=== PATIENT | female | born 1990 ===

== ENCOUNTER 2017-01-16 18:32 | Emergency (ER) | payer OTHER ==
[2017-01-16 18:59] VITALS: BP 114/80; PULSE 76; RESP 18; TEMP 98; BMI 31.6
[2017-01-16] MEDS ORDERED: Sodium Chloride 0.9% 1,000 ML IV STA (19:12)
[2017-01-16 20:08] LABS: ADD MANUAL DIFF? NO
[2017-01-16 20:19] LABS: PH,URINE 6.5 (4.7-8.0); URINE BILIRUBIN NEGATIVE (NEGATIVE); URINE BLOOD NEGATIVE (NEGATIVE); URINE GLUCOSE (UA) NEGATIVE (NEGATIVE); URINE KETONE NEGATIVE (NEGATIVE); URINE LEUKOCYTE ESTERASE NEGATIVE Leu/uL (NEGATIVE); URINE PROTEIN NEGATIVE mg/dL (<30 mg/dL); URINE UROBILINOGEN 0.2 E.U./dL (<1 E.U./dL)
[2017-01-16 20:22] LABS: INR 0.91 (0.93-1.08)
[2017-01-16 20:24] LABS: URINE APPEARANCE CLEAR (CLEAR); URINE COLOR YELLOW (YELLOW)
[2017-01-16 20:26] LABS: ALB/GLOB RATIO 1.2 (1.1-1.8); ALKALINE PHOSPHATASE 59 U/L (38-133); ALT/SGPT 41 U/L (7-56); AST/SGOT 23 U/L (15-39); BILIRUBIN,TOTAL 0.4 mg/dL (0.2-1.3); BLOOD UREA NITROGEN 12 mg/dL (7-21); CARBON DIOXIDE 22 mmol/L (21-33); CHLORIDE 101 mmol/L (98-107); GFR AFRICAN-AMERICAN > 60; GLUCOSE,RANDOM 86 mg/dL (70-110); POTASSIUM 3.9 mmol/L (3.6-5.0); SODIUM 132 mmol/L (132-148); TOTAL PROTEIN 7.3 g/dL (5.8-8.3)
[2017-01-16 20:29] LABS: BASO # 0.05 K/mm3 (0.0-2.0); BASO % 0.5 % (0.0-3.0); EOS # 0.2 (0.0-0.7); EOS % 2.5 % (1.5-5.0); GRAN # 6.12 (1.4-6.5); GRAN % 62.5 % (50.0-68.0); HEMATOCRIT 36.1 % (36.0-48.0); LYMPH # 2.6 (1.2-3.4); MEAN CELL VOLUME 87.4 fL (80.0-105.0); MEAN CORPUSCULAR HEMOGLOBIN 30.5 pg (25.0-35.0); MEAN CORPUSCULAR HGB CONC 34.9 g/dl (31.0-37.0); MEAN PLATELET VOLUME 9.2 fl (7.0-11.0); MONO # 0.8 (0.1-0.6); MONO % 8.5 % (1.0-6.0); PLATELET COUNT 299 10^3/uL (120.0-450.0); RED CELL DISTRIBUTION WIDTH 13.5 % (11.5-14.5); WHITE BLOOD COUNT 9.8 10^3/ul (4.5-11.0)
--- NOTE | 2017-01-16 20:50 | ED PDOC ---
Arrival/HPI - General Chief Complaint: Abdominal Pain Time Seen by Provider: 01/16/17 19:00 Historian: Patient - History of Present Illness Narrative History of Present Illness (Text): 01/16/17 20:42 26yo female present with complaint crampy subprapubic abdominal pain. States pain started after she ran about half a mile this morning to catch a train. Notes that she is currently 10weeks . Also reports mild thick vaginal discharge. States the discharge started weeks ago, but became worse today. She have OB. she denies nausea, vomiting, diarrhea, vaginal bleeding, fever, chills, any other complaint. Past Medical History - Provider Review Nursing Documentation Reviewed: Yes - Infectious Disease Hx of Infectious Diseases: None - Cardiac Hx Cardiac Disorders: No - Pulmonary Hx Respiratory Disorders: No - Neurological Hx Neurological Disorder: No - Renal Hx Renal Disorder: No - Endocrine/Metabolic Hx Endocrine Disorders: No - Hematological/Oncological Hx Blood Disorders: No - Integumentary Hx Dermatological Disorder: No - Musculoskeletal/Rheumatological Hx Musculoskeletal Disorders: No - Gastrointestinal Hx Gastrointestinal Disorders: No - Genitourinary/Gynecological Hx Genitourinary Disorders: Yes Other/Comment: endometriosis - Psychiatric Hx Psychophysiologic Disorder: No Hx Substance Use: No - Surgical History Other/Comment: vaginal biopsy - Anesthesia Hx Anesthesia: No Family/Social History - Physician Review Nursing Documentation Reviewed: Yes Family/Social History: Unknown Family HX Smoking Status: Never Smoked Hx Alcohol Use: Yes Hx Substance Use: No Allergies/Home Meds Allergies/Adverse Reactions: Allergies No Known Allergies Allergy (Verified 01/16/17 18:59) Home Medications: Home Meds Medication Instructions Recorded Confirmed Multivit/Folic Acid/I 1 tab PO DAILY 01/16/17 01/16/17 [ Plus] Review of Systems - Physician Review All systems were reviewed & negative as marked: Yes - Review of Systems Constitutional: Normal Eyes: Normal ENT: Normal Respiratory: Normal Cardiovascular: Normal Gastrointestinal: Abdominal Pain. absent: Constipation, Diarrhea, Nausea, Vomiting, Hematochezia, Hematemesis Genitourinary Female: Vaginal Discharge. absent: Vaginal Bleeding Musculoskeletal: Normal Skin: Normal Neurological: Normal Endocrine: Normal Hemo/Lymphatic: Normal Psychiatric: Normal Physical Exam Vital Signs Reviewed: Yes Vital Signs Temp Pulse Resp BP Pulse Ox 01/16/17 21:34 18 98 01/16/17 18:52 98 F 76 18 114/80 99 Temperature: Afebrile Blood Pressure: Normal Pulse: Regular Respiratory Rate: Normal Appearance: Positive for: Well-Appearing, Non-Toxic, Comfortable Pain Distress: None Mental Status: Positive for: Alert and Oriented X 3 - Systems Exam Head: Present: Atraumatic, Normocephalic Pupils: Present: PERRL Extroacular Muscles: Present: EOMI Conjunctiva: Present: Normal Mouth: Present: Moist Mucous Membranes Neck: Present: Normal Range of Motion Respiratory/Chest: Present: Clear to Auscultation, Good Air Exchange. No: Respiratory Distress, Accessory Muscle Use Cardiovascular: Present: Regular Rate and Rhythm, Normal S1, S2. No: Murmurs Abdomen: Present: Normal Bowel Sounds. No: Tenderness, Distention, Peritoneal Signs, Rebound, Guarding, McBurney's Point Tender, Rovsing's Sign Present Back: Present: Normal Inspection Upper Extremity: Present: Normal Inspection. No: Cyanosis, Edema Lower Extremity: Present: Normal Inspection. No: Edema Neurological: Present: GCS=15, CN II-XII Intact, Speech Normal Skin: Present: Warm, Dry, Normal Color. No: Rashes Psychiatric: Present: Alert, Oriented x 3, Normal Insight, Normal Concentration Medical Decision Making ED Course and Treatment: 01/17/17 01:14 Pt in ED for stated history. She denied vaginal bleeding in ED Beta quant [id number] She was hydrated in ED Transvaginal US FINDINGS: Gestation: Single live intrauterine gestation. heart rate of 155 beats per minute. [place]-rump length of 4.2 cm, correlating with gestational age of 11 weeks 1 day. Placenta/amniotic fluid: Questionable contraction vs slight prominence of placenta. Uterus/cervix: No subchorionic hemorrhage. No cervical dilatation or effacement. Ovaries: RIGHT ovary: Normal. LEFT ovary: Not visualized. No adnexal masses. Free fluid: No significant free fluid. IMPRESSION: 1. Single live intrauterine gestation. 2. Incidental/non-acute findings are described above. Result was DW the patient. She was advised to rest and keep herself well hydrated. she have OB and was strongly advised to f/u with her OB tomorrow . She notes that she will see her OB tomorrow. States she came to ED today because her OB was close. Advised TRT ED if her symptoms persists or worsens. 01/17/17 01:18 - Lab Interpretations Lab Results: 01/16/17 20:07 01/16/17 20:07 Lab Results 01/16/17 20:07: Beta HCG, Quant [id number] H 01/16/17 20:07: Sodium 132, Potassium 3.9, Chloride 101, Carbon Dioxide 22, Anion Gap 13, BUN 12, Creatinine 0.5, Est GFR ( Amer) > 60, Est GFR (Non- Af Amer) > 60, Random Glucose 86, Calcium 9.0, Total Bilirubin 0.4, AST 23, ALT 41, Alkaline Phosphatase 59, Total Protein 7.3, Albumin 4.0, Globulin 3.3, Albumin/Globulin Ratio 1.2 01/16/17 20:07: Urine Color Yellow, Urine Appearance Clear, Urine pH 6.5, Ur Specific [place] 1.020, Urine Protein Negative, Urine Glucose (UA) Negative, Urine Ketones Negative, Urine Blood Negative, Urine Nitrate Negative, Urine Bilirubin Negative, Urine Urobilinogen 0.2, Ur Leukocyte Esterase Negative, Urine HCG, Qual Positive 01/16/17 20:07: PT 9.8 L, INR 0.91 L, APTT 27.0 01/16/17 20:07: WBC 9.8 D, RBC 4.13, Hgb 12.6, Hct 36.1, MCV 87.4, MCH 30.5, MCHC 34.9, RDW 13.5, Plt Count 299, MPV 9.2, Gran % 62.5, Lymph % (Auto) 26.0, [place] % (Auto) 8.5 H, Eos % (Auto) 2.5, Baso % (Auto) 0.5, Gran # 6.12, Lymph # 2.6, [place] # 0.8 H, Eos # 0.2, Baso # 0.05 - RAD Interpretation Radiology Orders: 01/16/17 19:11 OB TRANSVAGINAL [US] Stat - Medication Orders Current Medication Orders: Discontinued Medications Sodium Chloride (Sodium Chloride 0.9%) 1,000 mls @ 999 mls/hr IV .Q1H1M STA Stop: 01/16/17 20:12 Last Admin: 01/16/17 20:30 Dose: 999 mls/hr Disposition/Present on Arrival - Present on Arrival Any Indicators Present on Arrival: No History of DVT/PE: No History of Uncontrolled Diabetes: No Urinary Catheter: No History of Decub. Ulcer: No History Surgical Site Infection Following: None - Disposition Have Diagnosis and Disposition been Completed?: Yes Diagnosis: Abdominal pain, Disposition: HOME/ ROUTINE Disposition Time: 21:15 Patient Plan: Discharge Condition: STABLE Discharge Instructions (ExitCare): (ED), Abdominal Pain (ED) Additional Instructions: Follow up with your OB tomorrow Return to ED for any new symptoms Referrals: Joanna Rodgers, [Primary Care Provider] - Follow up with primary
--- NOTE | 2017-01-16 21:08 | US ---
EXAM: US First Trimester, Transabdominal CLINICAL HISTORY: 26 years old, female; Pain; complicated by abdominal or pelvic pain; Right lower quadrant; First trimester; Gestational age or lmp: 11 weeks; ; Additional info: Abdominal pain/ TECHNIQUE: Real-time transabdominal obstetrical ultrasound of the maternal pelvis and a first trimester with image documentation. COMPARISON: No relevant prior studies available. FINDINGS: Gestation: Single live intrauterine gestation. heart rate of 155 beats per minute. [place]-rump length of 4.2 cm, correlating with gestational age of 11 weeks 1 day. Placenta/amniotic fluid: Questionable contraction vs slight prominence of placenta. Uterus/cervix: No subchorionic hemorrhage. No cervical dilatation or effacement. Ovaries: RIGHT ovary: Normal. LEFT ovary: Not visualized. No adnexal masses. Free fluid: No significant free fluid. IMPRESSION: 1. Single live intrauterine gestation. 2. Incidental/non-acute findings are described above. EXAM: US , Transvaginal CLINICAL HISTORY: 26 years old, female; Pain; complicated by abdominal or pelvic pain; Right lower quadrant; First trimester; Gestational age or lmp: 11 weeks; ; Additional info: Abdominal pain/ TECHNIQUE: Real-time transvaginal obstetrical ultrasound of the maternal pelvis and a first trimester with image documentation. Transvaginal imaging was used for better evaluation of the fetus and adnexa. COMPARISON: No relevant prior studies available. FINDINGS: Gestation: Single live intrauterine gestation. heart rate of 155 beats per minute. [place]-rump length of 4.2 cm, correlating with gestational age of 11 weeks 1 day. Placenta/amniotic fluid: Questionable contraction vs slight prominence of placenta. Uterus/cervix: No subchorionic hemorrhage. No cervical dilatation or effacement. Ovaries: RIGHT ovary: Normal. LEFT ovary: Not visualized. No adnexal masses. Free fluid: No significant free fluid.
[2017-01-16 21:35] VITALS: O2SAT 98
== END 2017-01-16 21:40 | disposition home or self-care (01) ==
LOC: ED 18:32
DX: O26.91 Pregnancy related conditions, unspecified, first trimester (principal); Z3A.11 11 weeks gestation of pregnancy; R10.9 Unspecified abdominal pain
CPT/HCPCS: 76817; 80053; 81003; 84702; 84703; 85025; 85610; 85730; 99283; J7040

== ENCOUNTER 2018-12-23 22:03 | Emergency (ER) | payer OTHER ==
[2018-12-23 22:04] VITALS: BMI 31.6
[2018-12-23 22:23] VITALS: RESP 18; TEMP 97.9; O2SAT 100
[2018-12-23] MEDS ORDERED: Sodium Chloride 0.9% 1,000 ML IV STA (22:48)
[2018-12-23 23:16] LABS: BASO # 0.02 K/mm3 (0.0-2.0); BASO % 0.2 % (0.0-3.0); EOS # 0.2 (0.0-0.7); EOS % 2.9 % (1.5-5.0); HEMOGLOBIN 10.8 g/dL (12.0-16.0); LYMPH # 2.8 (1.2-3.4); LYMPH % 33.7 % (22.0-35.0); MEAN CELL VOLUME 76.7 fl (80.0-105.0); MEAN CORPUSCULAR HEMOGLOBIN 24.4 pg (25.0-35.0); MEAN CORPUSCULAR HGB CONC 31.9 g/dl (31.0-37.0); MEAN PLATELET VOLUME 9.4 fl (7.0-11.0); MONO # 0.5 (0.1-0.6); MONO % 5.6 % (1.0-6.0); RBC 4.42 10^6/uL (3.5-6.1); RED CELL DISTRIBUTION WIDTH 15.8 % (11.5-14.5); WHITE BLOOD COUNT 8.3 10^3/uL (4.5-11.0)
[2018-12-23 23:17] LABS: URINE BILIRUBIN NEGATIVE (NEGATIVE); URINE BLOOD NEGATIVE (NEGATIVE); URINE GLUCOSE (UA) NEGATIVE (NEGATIVE); URINE LEUKOCYTE ESTERASE NEGATIVE Leu/uL (NEGATIVE); URINE PROTEIN TRACE mg/dL (<30 mg/dL); URINE UROBILINOGEN 0.2 E.U./dL (<1 E.U./dL)
[2018-12-23 23:18] LABS: URINE APPEARANCE SLIGHT-CLOUDY (CLEAR)
[2018-12-23 23:25] LABS: ALB/GLOB RATIO 1.2 (1.1-1.8); ALBUMIN 4.1 g/dL (3.0-4.8); ALT/SGPT 19 U/L (7-56); AST/SGOT 22 U/L (14-36); BLOOD UREA NITROGEN 14 mg/dL (7-21); CALCIUM 8.9 mg/dL (8.4-10.5); GFR NON-AFRICAN AMERICAN > 60
[2018-12-23 23:33] LABS: URINE BACTERIA SMALL /hpf; URINE RBC 0 - 2 /hpf (0-2)
[2018-12-23 23:34] LABS: URINE WBC 0 - 2 /hpf (0-6)
[2018-12-23 23:37] LABS: TROPONIN I < 0.01 ng/mL
--- NOTE | 2018-12-24 | ED PDOC ---
Arrival/HPI - General Chief Complaint: Palpitations Time Seen by Provider: 12/23/18 22:11 Historian: Patient - History of Present Illness Narrative History of Present Illness (Text): 12/23/18 23:57 28 year old female, with no significant past medical history, presents to the emergency department reporting that she started taking a diet pill Topamax 25mg and Phentermine 37.5 mg for 2 months. Patient lost 20 pounds, but changed her doctor. patient wanted to see if she could lose more weight on her own without the medication. One week ago patient started taking the medication again, but for the past few days began having generalized fatigue and palpitations. Patient reports palpitations for the first time she took the mediation, but the feeling tired and fatigue is new. Patient 1 month ago saw her doctor who did blood work prior to starting the medications and reported everything was normal. Patient reports she is sexually active with no protection, but is unsure if she is . Patient denies any fever, chills, chest pain, shortness of breath, abdominal pain, nausea, vomiting, diarrhea, urinary symptoms, back pain, neck pain, headache, dizziness, or any other complaints. Symptom Onset: Gradual Symptom Course: Unchanged Activities at Onset: Light Context: Home Past Medical History - Provider Review Nursing Documentation Reviewed: Yes - Infectious Disease Hx of Infectious Diseases: None - Cardiac Hx Cardiac Disorders: No - Pulmonary Hx Respiratory Disorders: Yes Hx Asthma: Yes - Neurological Hx Neurological Disorder: No - Renal Hx Renal Disorder: No - Endocrine/Metabolic Hx Endocrine Disorders: No - Hematological/Oncological Hx Blood Disorders: No - Integumentary Hx Dermatological Disorder: No - Musculoskeletal/Rheumatological Hx Musculoskeletal Disorders: No - Gastrointestinal Hx Gastrointestinal Disorders: No - Genitourinary/Gynecological Hx Genitourinary Disorders: Yes Hx Reproductive Disorders: Yes (pre-eclampsia) Other/Comment: endometriosis - Psychiatric Hx Psychophysiologic Disorder: No Hx Substance Use: Yes - Surgical History Hx Section: Yes Other/Comment: vaginal biopsy - Anesthesia Hx Anesthesia: No Family/Social History - Physician Review Nursing Documentation Reviewed: Yes Family/Social History: No Known Family HX Smoking Status: Never Smoked Hx Alcohol Use: Yes Frequency of alcohol use: Socially Hx Substance Use: Yes Substance used: marijuana Allergies/Home Meds Allergies/Adverse Reactions: Allergies No Known Allergies Allergy (Verified 12/23/18 22:21) Home Medications: Home Meds Medication Instructions Recorded Confirmed Phentermine HCl 37.5 mg PO DAILY 12/23/18 12/23/18 Topiramate [Topamax] 2 tab PO DAILY 12/23/18 12/23/18 Review of Systems - Physician Review All systems were reviewed & negative as marked: Yes - Review of Systems Constitutional: Fatigue. absent: Fevers, Other (chills) Respiratory: absent: Cough Cardiovascular: Palpitations. absent: Chest Pain Gastrointestinal: absent: Abdominal Pain, Diarrhea, Nausea, Vomiting Genitourinary Female: absent: Dysuria, Frequency, Hematuria Musculoskeletal: absent: Back Pain, Neck Pain Neurological: absent: Headache, Dizziness Physical Exam Vital Signs Reviewed: Yes Vital Signs Temp Pulse Resp BP Pulse Ox 12/23/18 22:15 97.9 F 87 18 123/73 100 Temperature: Afebrile Blood Pressure: Normal Pulse: Regular Respiratory Rate: Normal Appearance: Positive for: Well-Appearing, Non-Toxic, Comfortable Pain Distress: None Mental Status: Positive for: Alert and Oriented X 3 - Systems Exam Head: Present: Atraumatic, Normocephalic Pupils: Present: PERRL Extroacular Muscles: Present: EOMI Conjunctiva: Present: Normal Mouth: Present: Moist Mucous Membranes Neck: Present: Normal Range of Motion Respiratory/Chest: Present: Clear to Auscultation, Good Air Exchange. No: Respiratory Distress, Accessory Muscle Use Cardiovascular: Present: Regular Rate and Rhythm, Normal S1, S2. No: Murmurs Abdomen: No: Tenderness, Distention, Peritoneal Signs Back: Present: Normal Inspection Upper Extremity: Present: Normal Inspection. No: Cyanosis, Edema Lower Extremity: Present: Normal Inspection. No: Edema Neurological: Present: GCS=15, Speech Normal Skin: Present: Warm, Dry, Normal Color. No: Rashes Psychiatric: Present: Alert, Oriented x 3, Normal Insight, Normal Concentration Medical Decision Making ED Course and Treatment: 12/24/18 00:03 Impression: 28 year old female presents complaining of generalized fatigue and palpitations after began taking Topamax 25mg and Phentermine 37.5 mg again. Plan: -- EKG -- Labs -- IV Fluids -- POC Urine Test -- Urinalysis w/ micro -- Reassess and disposition Progress Notes: Uhcg : (-). EKG shows NSR at 74 BPM, no acute ST changes. Interpreted by me. Labs reviewed : hgb 10.8, rest of the labs including trop and TSH are wnl. On reevaluation, patient remains awake alert and oriented 3 in no acute distress. Results d/w the patient. Advised to follow up with primary care physician in 1-2 days without fail. Return to the emergency room at any time for any new or worsening symptoms. Patient states she fully agrees with and understands discharge instructions. States that she agrees with the plan and disposition. Verbalized and repeated discharge instructions and plan. I have given the patient opportunity to ask any additional questions. - Lab Interpretations Lab Results: Troponin I < 0.01 ng/mL 12/23/18 22:58 Total Bilirubin 0.3 mg/dL (0.2-1.3) 12/23/18 22:58 AST 22 U/L (14-36) 12/23/18 22:58 ALT 19 U/L (7-56) 12/23/18 22:58 Alkaline Phosphatase 75 U/L (38-126) 12/23/18 22:58 Total Protein 7.4 g/dL (5.8-8.3) 12/23/18 22:58 Albumin 4.1 g/dL (3.0-4.8) 12/23/18 22:58 Globulin 3.3 gm/dL 12/23/18 22:58 Albumin/Globulin Ratio 1.2 (1.1-1.8) 12/23/18 22:58 Urine Color yellow (YELLOW) 12/23/18 22:58 Urine Appearance Slight-cloudy (CLEAR) 12/23/18 22:58 Urine pH 6.0 (4.7-8.0) 12/23/18 22:58 Ur Specific [place] >= 1.030 (1.005-1.035) 12/23/18 22:58 Urine Protein Trace mg/dL (<30 mg/dL) H 12/23/18 22:58 Urine Glucose (UA) Negative mg/dL (NEGATIVE) 12/23/18 22:58 Urine Ketones Negative mg/dL (NEGATIVE) 12/23/18 22:58 Urine Blood Negative (NEGATIVE) 12/23/18 22:58 Urine Nitrate Negative (NEGATIVE) 12/23/18 22:58 Urine Bilirubin Negative (NEGATIVE) 12/23/18 22:58 Urine Urobilinogen 0.2 E.U./dL (<1 E.U./dL) 12/23/18 22:58 Ur Leukocyte Esterase Negative [place]/uL (NEGATIVE) 12/23/18 22:58 Urine RBC 0 - 2 /hpf (0-2) 12/23/18 22:58 Urine WBC 0 - 2 /hpf (0-6) 12/23/18 22:58 Ur Epithelial Cells 6 - 8 /hpf (0-5) H 12/23/18 22:58 Urine Bacteria Small /hpf (NONE) 12/23/18 22:58 I have reviewed the lab results: Yes - EKG Interpretation Interpreted by ED Physician: Yes Type: 12 lead EKG - Medication Orders Current Medication Orders: Discontinued Medications Sodium Chloride (Sodium Chloride 0.9%) 1,000 mls @ 1,000 mls/hr IV .Q1H STA Stop: 12/23/18 23:47 Last Admin: 12/23/18 23:11 Dose: 1,000 mls/hr eMAR Start Stop Document 12/23/18 23:11 RG (Rec: 12/23/18 23:14 RG [id number]) Intravenous Solution Start Date 12/23/18 Start Time 23:11 - PA / SECURITY DELIVERY SPECIALIST / Resident Statement MD/DO has reviewed & agrees with the documentation as recorded. - Scribe Statement The provider has reviewed the documentation as recorded by the Scribe Yadira Menjivar Provider Scribe Attestation: All medical record entries made by the Scribe were at my direction and personally dictated by me. I have reviewed the chart and agree that the record accurately reflects my personal performance of the history, physical exam, medic al decision making, and the department course for this patient. I have also personally directed, reviewed, and agree with the discharge instructions and disposition. Disposition/Present on Arrival - Present on Arrival Any Indicators Present on Arrival: No History of DVT/PE: No History of Uncontrolled Diabetes: No Urinary Catheter: No History of Decub. Ulcer: No History Surgical Site Infection Following: None - Disposition Have Diagnosis and Disposition been Completed?: Yes Diagnosis: Fatigue, Anemia Disposition: HOME/ ROUTINE Disposition Time: 00:00 Patient Plan: Discharge Condition: STABLE Discharge Instructions (ExitCare): Fatigue (DC), Anemia Caused by Low Iron Additional Instructions: Thank you for letting us take care of you today. You were treated for fatigue, anemia. The emergency medical care you received today was directed at your acute symptoms. Return to the Emergency Department if your symptoms worsen, do not improve, or if you have any other problems. Please contact your doctor in 2 days for re-evaluation and follow up. Bring any paperwork you were given at discharge with you along with any medications you are taking to your follow up visit. Our treatment cannot replace ongoing medical care by a primary care provider (PCP) outside of the emergency department. Thank you for allowing the [facility] team to be part of your care today. Your hgb today was 10.8, please follow this up with your pmd. Referrals: FAMILY PROVIDER,NO [Primary Care Provider] - Follow up with primary Forms: [id number] (Slovenian), WORK NOTE
[2018-12-24 00:16] VITALS: BP 108/67; PULSE 75
--- NOTE | 2018-12-24 10:52 | CARD ---
APPROVED REPORT Date of service: 12/23/2018 EKG Measurement Heart [id number] <Conclusion> Normal sinus rhythm Normal ECG
== END 2018-12-24 00:25 | disposition home or self-care (01) ==
LOC: ED 22:03
DX: D64.9 Anemia, unspecified (principal); R53.83 Other fatigue
CPT/HCPCS: 80053; 81001; 81025; 82550; 83615; 83735; 84443; 84484; 85025; 93005; 99284; J7030